=== PATIENT | female | born 1990 | race Caucasian/White ===

== ENCOUNTER 2017-11-21 21:43 | Emergency (ER) | payer OTHER ==
[~2017-11-21] VITALS: Ht 165.1 cm; Wt 89.1 kg
[~2017-11-21 21:43] MED LIST: ASPIR 8181 M1 PO; KEFLEX500 MG PO; METHADONE HCL40 MG PO; NORFLEX100 MG PO; PHENERGAN25 MG PR; PROMETHAZINE HC25 M1 PO; ULTRAM50 MG PO
[2017-11-21 21:52] VITALS: BP 120/77
[2017-11-22 00:45] LABS: HEMATOCRIT 35.6 % (36.0-46.0); HEMOGLOBIN 12.1 G/DL (11.9-15.5); MCH 30.4 PG (29.0-34.0); MCV 89.4 FL (83-99); PLATELET COUNT 286 K/uL (156-360); RBC DIS.WIDTH-CV 12.7 % (11.8-14.6); RBC DIS.WIDTH-SD 41.3 % (39-53); RED BLOOD COUNT 3.98 M/uL (3.80-5.20); WHITE BLOOD COUNT 15.4 K/uL (4.1-10.2)
[2017-11-22 00:59] LABS: CHLORIDE 104 mEq/L (99-109); POTASSIUM 4.2 mEq/L (3.7-5.4); SODIUM 140 mEq/L (136-147)
[2017-11-22 01:00] LABS: GLUCOSE 87 mg/dL (70-99)
[2017-11-22 01:04] LABS: CREATININE 0.7 mg/dL (0.6-1.3); GFR ESTIMATE (CALCULATED) > 59 mL/min/
[2017-11-22 01:05] LABS: UREA NITROGEN (BUN) 6 mg/dL (9-23)
[2017-11-22 01:09] LABS: TROP-I INTERPRETATION NEGATIVE; TROPONIN-I < 0.01 ng/mL (0.0-0.30)
[2017-11-22] MEDS ORDERED: NAPROXEN500 MG PO ×2 (01:40→01:48)
[2017-11-22] MEDS ORDERED: FLEXERIL10 MG PO ×2 (01:40→01:48)
== END 2017-11-22 01:48 | disposition left against medical advice (07) ==
LOC: EME 21:43
PROVIDERS: Physician Assistant Medical
DX: M54.9 Dorsalgia, unspecified (principal); R07.9 Chest pain, unspecified; R51 Headache; R20.2 Paresthesia of skin; V49.40XA Driver injured in collision with unspecified motor vehicles in traffic accident, initial encounter; Y92.410 Unspecified street and highway as the place of occurrence of the external cause; F17.200 Nicotine dependence, unspecified, uncomplicated; Z88.2 Allergy status to sulfonamides
CPT/HCPCS: 71046; 72070; 80048; 84484; 85027; 93005; 99281; 99283